=== PATIENT | female | born 1960 | race Caucasian/White ===

== ENCOUNTER 2017-03-26 23:02 | Observation (INO) | payer OTHER ==
[2017-03-26] MEDS ORDERED: Ondansetron 8 MG Tab.DIS PO ONE ×2 (23:05)
[2017-03-26] MEDS ORDERED: Alum Hydroxide/Mag Hydroxide 15 ML, Lidocaine 2% 15 ML PO ONE ×2 (23:05)
--- NOTE | 2017-03-26 23:07 | EDM.PDOC ---
ED HPI GENERAL MEDICAL PROBLEM - General Stated Complaint: STOMACH PAIN Time Seen by Provider: 03/26/17 23:02 Source of Information: Reports: Patient, Family History Limitations: Reports: No Limitations - History of Present Illness INITIAL COMMENTS - FREE TEXT/NARRATIVE: 56 years old w f came with her dad to the ed a few hours after she ate fatty food. Pt denied vomiting, locating her pain at her mid upper abdomen. Denied trauma. No N/V/D dizzy or lightheadedness, denied any previous abdominal surgery. Denied hiatal hernia. denied H/O CAD BP 138/85 pulse 87 temp 36.4 Onset: Today Onset Date: 03/26/17 Onset Time: 22:00 Duration: Hour(s): Location: Reports: Abdomen (epigastric) Epigastric Pain Score (Numeric/FACES): 2 - Related Data Allergies Allergy/AdvReac Type Severity Reaction Status Date / Time No Known Allergies Allergy Verified 03/27/17 01:50 Home Meds: Home Meds DULoxetine [Cymbalta] 90 mg PO DAILY 03/27/17 [History] Levothyroxine Sodium [Synthroid] 112 mcg PO DAILY 03/27/17 [History] buPROPion [Wellbutrin SR] 150 mg PO DAILY 03/27/17 [History] ED ROS GENERAL - Review of Systems Review Of Systems: See Below Constitutional: Reports: No Symptoms HEENT: Reports: No Symptoms Respiratory: Reports: No Symptoms Cardiovascular: Reports: No Symptoms Endocrine: Reports: No Symptoms GI/Abdominal: Reports: Abdominal Pain : Reports: No Symptoms Musculoskeletal: Reports: No Symptoms Skin: Reports: No Symptoms Neurological: Reports: No Symptoms Psychiatric: Reports: No Symptoms Hematologic/Lymphatic: Reports: No Symptoms Immunologic: Reports: No Symptoms ED EXAM, GI/ABD - Physical Exam Exam: See Below Exam Limited By: No Limitations General Appearance: Alert, WD/WN, Mild Distress Eyes: Bilateral: Normal Appearance Ears: Normal External Exam Nose: Normal Inspection Throat/Mouth: Normal Inspection, Normal Lips Head: Atraumatic, Normocephalic Neck: Normal Inspection, Supple, Non-Tender, Full Range of Motion Respiratory/Chest: No Respiratory Distress, Lungs Clear, Normal Breath Sounds Cardiovascular: Normal Peripheral Pulses, Regular Rate, Rhythm, No Edema, No Gallop GI/Abdominal Exam: Normal Bowel Sounds, Tender (epigastric and RUQ od abdomen) (Female) Exam: Deferred Rectal (Female) Exam: Deferred Back Exam: Normal Inspection, Full Range of Motion Extremities: Normal Inspection, Normal Range of Motion, Non-Tender, No Pedal Edema Neurological: Alert, Oriented, CN II-XII Intact, Normal Cognition, Normal Gait Psychiatric: Normal Affect, Normal Mood Skin Exam: Warm, Dry, Intact, Normal Color, No Rash Lymphatic: No Adenopathy Course - Vital Signs Text/Narrative:: 56 years old w f came with her dad to the ed a few hours after she ate fatty food. Pt denied vomiting, locating her pain at her mid upper abdomen. Denied trauma. No N/V/D dizzy or lightheadedness, denied any previous abdominal surgery. Denied hiatal hernia. denied H/O CAD BP 138/85 pulse 87 temp 36.4 PE: WNWD WF with epigastric tenderness. Labs: CBC and BMP and tb AND db WERE NL amylase was neg as well Imaging: CT abd/pelvis Distended GB, pericholecystic fluid (US not available at this time) Sonography U/S not available Impression: epigastric tenderness, RUQ abd, pain with inspiration (pos pierre sign) possble cholecytitis (pericholecystic fluid on CT) 1.45 am: consultation Dr. Castaneda, Surgeon: Accepted pt for admission to OBS Tx: GI cocktail, Dilaudid, NS, Zofran, Protonix, Reexam: pain improved initially, pain came back 1 hour later Plan: admit to M/S for OBS Last Recorded V/S: Last Vital Signs Temp 37.0 C 03/27/17 03:20 Pulse 97 03/27/17 02:30 Resp 18 03/27/17 02:30 BP 138/85 03/27/17 02:30 Pulse Ox 98 03/27/17 02:30 - Orders/Labs/Meds Orders: Active Orders 24 hr Category Date Time Status Patient Status [ADT] Routine ADT 03/27/17 01:51 Active Oxygen Therapy [RC] PRN Care 03/27/17 01:51 Active Up With Assistance [RC] ASDIRECTED Care 03/27/17 01:50 Active VTE/DVT Education [RC] Per Unit Routine Care 03/27/17 01:51 Active Vital Signs [RC] Q4H Care 03/27/17 01:51 Active Nothing per Oral Now Diet [DIET] Diet 03/27/17 Breakfast Ordered Abdomen Pelvis w Cont [CT] Stat Exams 03/27/17 00:32 Taken Docusate Sodium [Colace] Med 03/27/17 01:50 Active 100 mg PO BID PRN Ondansetron [Zofran] Med 03/27/17 01:50 Active 4 mg IV Q4H PRN Sodium Chloride 0.9% [Normal Saline] 1,000 ml Med 03/27/17 02:00 Active IV ASDIRECTED Sodium Chloride 0.9% [Saline Flush] Med 03/26/17 23:32 Active 10 ml FLUSH ASDIRECTED PRN Peripheral IV Insertion Adult [OM.PC] Routine Oth 03/26/17 23:32 Ordered Resuscitation Status Routine Resus Stat 03/27/17 01:50 Ordered Medication Orders Docusate Sodium (Colace) 100 mg PO BID PRN PRN Reason: Constipation Sodium Chloride (Normal Saline) 1,000 mls @ 125 mls/hr IV ASDIRECTED JOHNNY Last Admin: 03/27/17 02:15 Dose: 125 mls/hr Ondansetron HCl (Zofran) 4 mg IV Q4H PRN PRN Reason: Nausea/Vomiting Sodium Chloride (Saline Flush) 10 ml FLUSH ASDIRECTED PRN PRN Reason: Keep Vein Open Last Admin: 03/26/17 23:54 Dose: 10 ml Labs: Laboratory Tests 03/26/17 03/26/17 03/26/17 Range/Units 23:48 23:48 23:48 WBC 11.3 (4.5-12.0) X10-3/uL RBC 5.01 (3.23-5.20) x10(6)uL Hgb 13.7 (11.5-15.5) g/dL Hct 40.0 (30.0-51.3) % MCV 79.8 L (80-96) fL MCH 27.3 L (27.7-33.6) pg MCHC 34.2 (32.2-35.4) g/dL RDW 12.8 (11.5-15.5) % Plt Count 289 (125-369) X10(3)uL MPV 9.4 (7.4-10.4) fL Neut % (Auto) 75.8 (46-82) % Lymph % (Auto) 15.5 (13-37) % Sheridan % (Auto) 5.0 (4-12) % Eos % (Auto) 3 (1.0-5.0) % Baso % (Auto) 1 (0-2) % Neut # (Auto) 8.5 H (1.6-8.3) # Lymph # (Auto) 1.8 (0.6-5.0) # Sheridan # (Auto) 0.6 (0.0-1.3) # Eos # (Auto) 0.3 (0.0-0.8) # Baso # (Auto) 0.1 (0.0-0.2) # PT (8.7-11.1) INR (0.89-1.13) Sodium 137 (135-145) mmol/L Potassium 3.9 (3.5-5.3) mmol/L Chloride 104 (100-110) mmol/L Carbon Dioxide 24 (23-29) mmol/L BUN 14 (5-20) mg/dL Creatinine 0.8 (0.6-1.3) mg/dL Est Cr Clr Drug Dosing TNP Estimated GFR (MDRD) > 60 (>60) BUN/Creatinine Ratio 17.5 (9-20) Glucose 130 H (80-116) mg/dL Calcium 9.6 (8.6-10.2) mg/dL Total Bilirubin 0.4 (0.1-1.3) mg/dL Direct Bilirubin 0.2 (0.1-0.2) mg/dL AST 68 H (5-27) IU/L ALT 44 H (14-26) IU/L Alkaline Phosphatase 90 (56-112) IU/L Troponin I < 0.01 L (0.02-0.06) NG/ML Total Protein 7.4 (6.0-8.0) g/dL Albumin 4.2 (3.5-5.2) g/dL Amylase 44 (28-100) U/L 03/27/ Range/Units 01:50 WBC (4.5-12.0) X10-3/uL RBC (3.23-5.20) x10(6)uL Hgb (11.5-15.5) g/dL Hct (30.0-51.3) % MCV (80-96) fL MCH (27.7-33.6) pg MCHC (32.2-35.4) g/dL RDW (11.5-15.5) % Plt Count (125-369) X10(3)uL MPV (7.4-10.4) fL Neut % (Auto) (46-82) % Lymph % (Auto) (13-37) % Sheridan % (Auto) (4-12) % Eos % (Auto) (1.0-5.0) % Baso % (Auto) (0-2) % Neut # (Auto) (1.6-8.3) # Lymph # (Auto) (0.6-5.0) # Sheridan # (Auto) (0.0-1.3) # Eos # (Auto) (0.0-0.8) # Baso # (Auto) (0.0-0.2) # PT 9.9 (8.7-11.1) INR 0.98 (0.89-1.13) Sodium (135-145) mmol/L Potassium (3.5-5.3) mmol/L Chloride (100-110) mmol/L Carbon Dioxide (23-29) mmol/L BUN (5-20) mg/dL Creatinine (0.6-1.3) mg/dL Est Cr Clr Drug Dosing Estimated GFR (MDRD) (>60) BUN/Creatinine Ratio (9-20) Glucose (80-116) mg/dL Calcium (8.6-10.2) mg/dL Total Bilirubin (0.1-1.3) mg/dL Direct Bilirubin (0.1-0.2) mg/dL AST (5-27) IU/L ALT (14-26) IU/L Alkaline Phosphatase (56-112) IU/L Troponin I (0.02-0.06) NG/ML Total Protein (6.0-8.0) g/dL Albumin (3.5-5.2) g/dL Amylase (28-100) U/L Meds: Medications Generic Name Dose Route Start Last Admin Trade Name Freq PRN Reason Stop Dose Admin Docusate Sodium 100 mg 03/27/17 01:50 Colace PO BID PRN Constipation Sodium Chloride 1,000 mls @ 125 mls/hr 03/27/17 02:00 03/27/17 02:15 Normal Saline IV 125 mls/hr ASDIRECTED JOHNNY Administration Ondansetron HCl 4 mg 03/27/17 01:50 Zofran IV Q4H PRN Nausea/Vomiting Sodium Chloride 10 ml 03/26/17 23:32 03/26/17 23:54 Saline Flush FLUSH 10 ml ASDIRECTED PRN Administration Keep Vein Open Discontinued Medications Generic Name Dose Route Start Last Admin Trade Name Freq PRN Reason Stop Dose Admin Al Hydroxide/Mg Hydroxide 15 0 ml 03/26/17 23:05 03/26/17 23:15 ml/ Lidocaine HCl 15 ml PO 03/26/17 23:06 30 ml ONETIME ONE Administration Hydromorphone HCl 0.5 mg 03/26/17 23:33 03/26/17 23:53 Dilaudid IVPUSH 03/26/17 23:34 0.5 mg ONETIME ONE Administration Hydromorphone HCl 1 mg 03/27/17 01:46 03/27/17 02:07 Dilaudid IVPUSH 03/27/17 01:47 1 mg ONETIME STA Administration Piperacillin Sod/Tazobactam 50 mls @ 100 mls/hr 03/27/17 01:55 03/27/17 03:21 Sod 3.375 gm/ Sodium Chloride IV 03/27/17 02:24 100 mls/hr ONETIME STA Administration Iopamidol 150 ml 03/27/17 00:52 03/27/17 01:04 Isovue-370 (76%) IV 03/27/17 00:53 114 ml ONETIME ONE Administration Ondansetron HCl 8 mg 03/26/17 23:05 03/26/17 23:07 Zofran Odt PO 03/26/17 23:06 8 mg ONETIME ONE Administration Ondansetron HCl Confirm 03/26/17 23:05 03/26/17 23:21 Zofran Odt Administered 03/26/17 23:06 Not Given Dose 8 mg PO .STK-MED ONE Pantoprazole Sodium 40 mg 03/27/17 01:46 03/27/17 02:05 Protonix Iv IVPUSH 03/27/17 01:47 40 mg ONETIME ONE Administration Departure - Departure Time of Disposition: 01:49 Disposition: Refer to Observation Condition: Fair Clinical Impression: Abdominal pain in female, Cholecystitis - Discharge Information - My Orders Last 24 Hours: My Active Orders 03/26/17 23:32 Sodium Chloride 0.9% [Saline Flush] 10 ml FLUSH ASDIRECTED PRN Peripheral IV Insertion Adult [OM.PC] Routine 03/27/17 00:32 Abdomen Pelvis w Cont [CT] Stat 03/27/17 01:50 Up With Assistance [RC] ASDIRECTED Docusate Sodium [Colace] 100 mg PO BID PRN Ondansetron [Zofran] 4 mg IV Q4H PRN Resuscitation Status Routine 03/27/17 01:51 Patient Status [ADT] Routine Oxygen Therapy [RC] PRN VTE/DVT Education [RC] Per Unit Routine Vital Signs [RC] Q4H 03/27/17 02:00 Sodium Chloride 0.9% [Normal Saline] 1,000 ml IV ASDIRECTED 03/27/17 Breakfast Nothing per Oral Now Diet [DIET] - Assessment/Plan Last 24 Hours: My Active Orders 03/26/17 23:32 Sodium Chloride 0.9% [Saline Flush] 10 ml FLUSH ASDIRECTED PRN Peripheral IV Insertion Adult [OM.PC] Routine 03/27/17 00:32 Abdomen Pelvis w Cont [CT] Stat 03/27/17 01:50 Up With Assistance [RC] ASDIRECTED Docusate Sodium [Colace] 100 mg PO BID PRN Ondansetron [Zofran] 4 mg IV Q4H PRN Resuscitation Status Routine 03/27/17 01:51 Patient Status [ADT] Routine Oxygen Therapy [RC] PRN VTE/DVT Education [RC] Per Unit Routine Vital Signs [RC] Q4H 03/27/17 02:00 Sodium Chloride 0.9% [Normal Saline] 1,000 ml IV ASDIRECTED 03/27/17 Breakfast Nothing per Oral Now Diet [DIET]
[2017-03-26] MEDS ORDERED: HYDROmorphone 2 MG/ML SDV IVPUSH ONE (23:33)
[2017-03-26] MEDS: Sodium Chloride 0.9% 10 ML Syringe FLUSH PRN (23:54)
[2017-03-27] MEDS ORDERED: Iopamidol 755 MG/ML 150 ML Bottle IV ONE (00:52)
[2017-03-27] MEDS ORDERED: HYDROmorphone 2 MG/ML SDV IVPUSH STA (01:46)
[2017-03-27] MEDS ORDERED: Pantoprazole 40 MG Vial IVPUSH ONE (01:46)
[2017-03-27] MEDS ORDERED: Docusate Sodium 100 MG Cap PO PRN (01:50)
[2017-03-27] MEDS ORDERED: Ondansetron 4 MG/2 ML SDV IV PRN (01:50)
[2017-03-27] MEDS ORDERED: Piperacillin/Tazobactam 3.375 GM in Sodium Chloride 0.9% 50 ML IV STA (01:55)
[2017-03-27] MEDS ORDERED: Sodium Chloride 0.9% 1,000 ML IV SCH (02:00)
[2017-03-27] MEDS ORDERED: HYDROmorphone 2 MG/ML SDV IV ONE ×2 (07:38→09:57)
[2017-03-27] MEDS ORDERED: HYDROmorphone 2 MG/ML SDV IM ONE (09:53)
[2017-03-27] MEDS: Sodium Chloride 0.9% 10 ML Syringe FLUSH PRN (10:17)
--- NOTE | 2017-03-27 17:48 | HP ---
ADMISSION DATE: 03/27/2017 HISTORY OF PRESENT ILLNESS: This 56-year-old female was admitted through the emergency room early this morning after she presented with complaints of upper abdominal pain. She states her pain began yesterday morning approximately 1030 hours. There was a rather sudden onset of pain located in the epigastrium and slightly to the left and right upper quadrants. There is also radiation of the pain into her mid upper back. There was some associated nausea with this. She did have a normal bowel movement yesterday and there was no diarrhea and she has had no vomiting. She has not had pain like this in the past. She describes the pain as an intense burning pressure feeling. This pain has persisted and since it continued even into last night, she presented to the emergency room. Evaluation at that time included laboratory studies, which were unremarkable except for mild AST and ALT elevation. A CT scan of the abdomen was performed, which was interpreted as being normal with the exception of a trace amount of pericholecystic fluid and a mildly distended gallbladder. No stones or sludge were seen on the CT scan. The patient's pain has continued through the night, it has been able to be controlled with IV pain medication, but continues with little change from its onset over the past 24 hours. PAST MEDICAL HISTORY: Shows the only previous surgery was knee surgery and ear surgery. She has not had previous abdominal surgery. She takes medications for thyroid abnormality as well as an antidepressant MEDICATIONS: Include: 1. Cymbalta 90 mg a day. 2. Bupropion 150 mg a day. 3. Synthroid 112 mcg a day. ALLERGIES: She has no known drug allergies. FAMILY HISTORY: Her family history is notable for cardiac disease in her father. SOCIAL HISTORY: The patient is a resident of [place], [place] and is here visiting her father for the holiday. She works in a medical office. REVIEW OF SYSTEMS: The patient notes that she had a mild URI about 3 weeks ago. These symptoms have now completely cleared. She has not been experiencing any difficulty with chest pain or palpitations. She has had no shortness of breath or cough. She does not have a lot of difficulty with heartburn and does not have to take routine medication to control this. She says the occasional heartburn that she gets is not like the pain that she is currently experiencing. She generally has been having regular bowel function. No significant weight change and no voiding difficulties. She has been experiencing some arthritic pain in her left knee and does admit to taking approximately 6 Aleve daily. PHYSICAL EXAMINATION: VITAL SIGNS: Temperature is 98.2, pulse 105, blood pressure is 125/50, and O2 saturation is 94% on room air. Weight is 223 pounds. GENERAL: The patient is alert adult female, somewhat ill-appearing, but in no acute distress. HEENT: Head is normocephalic. There is no scleral icterus. I do not feel any cervical masses. HEART: Regular without murmur. LUNGS: Clear. Breath sounds are equal. No wheezing is noted. ABDOMEN: Soft. There is no distention. There is tenderness to direct palpation of a moderate degree in the upper abdomen, most significantly in the epigastrium, right upper quadrant. No CVA tenderness is noted. There is no calf tenderness or induration and no ankle edema. IMPRESSION: Upper abdominal pain, suspect possible gallbladder disease based on symptoms and CT scan findings. CT findings are not conclusive, however, and I believe before surgery would be performed, an ultrasound should be obtained. Unfortunately, an ultrasound is not available at this facility for the next 48 hours. PLAN: I contacted the [facility] in [place]. Discussed the case with them and she was accepted as an admission by Dr. Aquino. She will go by private car up to the hospital there for admission where resources are available to perform the appropriate of evaluation and then provide appropriate care for her. /[id number] NINA/ZEV
== END 2017-03-27 10:40 ==
LOC: FB.ED 23:02 → FB.MS 03-27 01:51
PROVIDERS: ADMIT Emergency Medicine; ATTEND Surgery
DX: K81.9 Cholecystitis, unspecified (principal); R10.13 Epigastric pain; R11.0 Nausea; E07.9 Disorder of thyroid, unspecified; Z82.49 Family history of ischemic heart disease and other diseases of the circulatory system; Z79.899 Other long term (current) drug therapy; Z98.890 Other specified postprocedural states
CPT/HCPCS: 36415; 74177; 80048; 80076; 82150; 84484; 85025; 85610; 96374; 96375; 99285; A9270; C9113; J1170; J2543; J7040; J7050; Q9967; 96361; 96365; 96376; G0378